=== PATIENT | female | born 1980 | race Caucasian/White ===

== ENCOUNTER 2017-10-22 17:42 | Emergency (ER) ==
[2017-10-22 17:46] VITALS: BP 139/95; TEMP 99.1; BMI 37.2
[2017-10-22] MEDS ORDERED: LIDOCAINE HCL 1% SDV IM STA (18:11)
[2017-10-22] MEDS ORDERED: ROCEPHIN IM STA (18:11)
--- NOTE | 2017-10-22 18:14 | ED.PDOC ---
General ED Provider: Dr. DONALD ORELLANA Chief Complaint: Urinary Problem Stated Complaint: dysuria, dental pain Time Seen by Physician: 18:00 Mode of Arrival: Walk-In Information Source: Patient Exam Limitations: No limitations [facility] Documentation Reviewed and Agree: Yes Reviewed sepsis parameters & appropriate labs ordered?: Yes (seen with nelda at all times ) System Inflammatory Response Syndrome: Not Applicable Sepsis Protocol: For patient's 13 years and over: Temp is 96.8 and below OR 101 and greater Pulse >90 BPM Resp >20/minute Acutely Altered Mental Status Are patient's symptoms suggestive of a new infection, such as: -Pneumonia -Skin, Soft Tissue -Endocarditis -UTI -Bone, Joint Infection -Implantable Device -Acute Abdominal Infection -Wound Infection -Meningitis -Blood Stream Catheter Infection -Unknown System Inflammatory Response Syndrome: Not Applicable EENT Complaint Exam - Dental/Oral Complaint/Exam Mechanism of Injury: No known trauma Onset/Duration: 2 days Symptoms Are: Still present Timing: Constant Initial Severity: Moderate Current Severity: Moderate Character: Reports: Aching, Throbbing Aggravating: Reports: Heat, Cold, Chewing Alleviating: Reports: None. Denies: OTC Meds Associated Signs and Symptoms: Denies: Swelling, Discharge, Fever, Foul odor, Foul taste in mouth Related History: Reports: Similar episode Cardiac Risk Factors: Reports: None Dental/Oral Surgical History: Reports: None Tooth Findings: Present: Gross decay, Gross caries Cervical Lymphadenopathy Present: No Facial Swelling Present: No Bleeding Present: No Oropharynx Findings: Absent: Clots, Active bleeding Septal Hematoma: No Foreign Body Present: No Dysphagia Present: No Drooling Present: No Asymmetrical Tonsillar Swelling Present: No Uvula Midline: No Ligia-tonsillar Fluctuence: No Trismus Present: No Palatal Petechiae Present: No Scarlatinaform Rash Present: No Teeth Picture: 1 - decay Differential Diagnoses: Dental Caries, Fractured Tooth Review of Systems - Review Of Systems Constitutional: Reports: No symptoms Eyes: Reports: No symptoms Ears, Nose, Mouth, Throat: Reports: No symptoms Respiratory: Reports: No symptoms Cardiac: Reports: No symptoms GI: Reports: No symptoms : Reports: No symptoms Musculoskeletal: Reports: No symptoms Skin: Reports: No symptoms Neurological: Reports: No symptoms Endocrine: Reports: No symptoms Hematologic/Lymphatic: Reports: No symptoms All Other Systems: Reviewed and Negative Past Medical History - Past Medical History Previously Healthy: No Endocrine: Reports: None Cardiovascular: Reports: None Respiratory: Reports: None Hematological: Reports: None Gastrointestinal: Reports: None Genitourinary: Reports: Kidney stones Neuro/Psych: Reports: Migraine, Anxiety, Depression, Bipolar Disorder Musculoskeletal: Reports: Back Pain Cancer: Reports: None Last Menstrual Period: first october Other Pertinent Past Medical History: 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 - Surgical History General Surgical History: Reports: Tubal ligation, Cholecystectomy - Family History Family History: Reports: Unknown - Social History Smoking Status: Never smoker Hx Substance Use: No Alcohol Screening: None Physical Exam - Physical Exam Appearance: Well-appearing, No pain distress, Well-nourished Eyes: MABEL, EOMI, Conjunctiva clear ENT: Ears normal, Nose normal, Oropharynx normal Respiratory: Airway patent, Breath sounds clear, Breath sounds equal, Respirations nonlabored Cardiovascular: RRR, Pulses normal, No rub, No murmur GI/: Soft, Nontender, No masses, Bowel sounds normal, No Organomegaly Musculoskeletal: Normal strength, ROM intact, No edema, No calf tenderness Skin: Warm, Dry, Normal color Neurological: Sensation intact, Motor intact, Reflexes intact, Cranial nerves intact, Alert, Oriented Psychiatric: Affect appropriate, Mood appropriate Critical Care Note - Critical Care Note Total Time (mins): 0 Course - Course Orders, Labs, Meds: Orders Category Date Time Status URINALYSIS C & S IF INDICATED Stat LAB 10/22/17 17:50 Received Ceftriaxone Sodium [Rocephin] MEDS 10/22/17 18:11 Stat 1 gm IM ONCE STA Lidocaine HCl/Pf [Lidocaine HCl 1% Sdv] MEDS 10/22/17 18:11 Stat 2.1 ml IM ONCE STA Medications Discontinued Medications Generic Name Dose Route Start Last Admin Trade Name Freq PRN Reason Stop Dose Admin Ceftriaxone Sodium 1 gm 10/22/17 18:11 Rocephin IM 10/22/17 18:12 ONCE STA Lidocaine HCl 2.1 ml 10/22/17 18:11 Lidocaine Hcl 1% Sdv IM 10/22/17 18:12 ONCE STA Vital Signs: Temp Pulse Resp BP Pulse Ox 10/22/17 17:42 99.1 F 111 H 20 139/95 H 97 Departure - Departure Time of Disposition: 18:15 Disposition: HOME SELF-CARE Discharge Problem: Urinary tract infectious disease, Pain, dental Instructions: Toothache (ED), Urinary Tract Infection in Women (ED) Condition: Good Pt referred to PMD for follow-up: Yes IPMP verified?: No Additional Instructions: Please call your Family Physician as soon as possible to schedule a follow-up appointment. Prescriptions: Amoxicillin 500 mg PO Q8HR #21 tablet Allergies/Adverse Reactions: Allergies sulfamethoxazole [From Bactrim] Allergy (Severe, Verified 10/22/17 17:46) Hives trimethoprim [From Bactrim] Allergy (Severe, Verified 10/22/17 17:46) Hives ciprofloxacin [From Cipro] Adverse Reaction (Verified 10/22/17 17:46) ciprofloxacin HCl [From Cipro] Adverse Reaction (Verified 10/22/17 17:46) codeine [Codeine] Adverse Reaction (Verified 10/22/17 17:46) BREAK OUT, THROAT SWELLING tramadol HCl [From Ultram] Adverse Reaction (Verified 10/22/17 17:46) ITCHY Home Medications: Ambulatory Orders Amoxicillin 500 mg PO Q8HR #21 tablet 10/22/17 Disposition Discussed With: Patient
== END 2017-10-22 18:54 | disposition home or self-care (01) ==
LOC: ED 17:42
DX: N39.0 Urinary tract infection, site not specified (principal); K08.89 Other specified disorders of teeth and supporting structures; K02.7 Dental root caries
CPT/HCPCS: 81001; 87086; 96372; 99283

== ENCOUNTER 2018-01-17 15:40 | Outpatient (CLI) ==
[2012-12-08 09:46] VITALS: TEMP 98.4
== END 2018-01-17 15:41 | disposition home or self-care (01) ==
LOC: LAB 15:40
PROVIDERS: ATTEND Emergency Medicine
DX: F41.1 Generalized anxiety disorder (principal); G89.4 Chronic pain syndrome; N39.3 Stress incontinence (female) (male); R35.0 Frequency of micturition
CPT/HCPCS: 36415; 80053; 81001; 85025; 87086; 87186

== ENCOUNTER 2018-01-21 09:58 | Emergency (ER) ==
[2018-01-21 10:05] VITALS: BP 126/84; TEMP 98.5; BMI 37.4
[2018-01-21] MEDS ORDERED: MORPHINE 2 MG/ML SYRINGE IM STA (10:20)
[2018-01-21] MEDS ORDERED: ZOFRAN 4 MG/2 ML IM STA (10:20)
--- NOTE | 2018-01-21 10:43 | ED.PDOC ---
General ED Provider: Dr. DONALD ORELLANA Chief Complaint: Headache Stated Complaint: HEADACHE Time Seen by Physician: 10:00 Mode of Arrival: Walk-In Information Source: Patient Exam Limitations: No limitations [facility] Documentation Reviewed and Agree: Yes Does patient meet sepsis criteria?: No If yes, has appropriate treatment been initiated?: No System Inflammatory Response Syndrome: Not Applicable Sepsis Protocol: For patient's 13 years and over: Temp is 96.8 and below OR 101 and greater Pulse >90 BPM Resp >20/minute Acutely Altered Mental Status Are patient's symptoms suggestive of a new infection, such as: -Pneumonia -Skin, Soft Tissue -Endocarditis -UTI -Bone, Joint Infection -Implantable Device -Acute Abdominal Infection -Wound Infection -Meningitis -Blood Stream Catheter Infection -Unknown Neurological Complaint Exam - Headache Complaint/Exam Onset: Gradual Duration: 1 DAY Symptoms Are: Still present Timing: Constant Episodes Lasting: Hours Worst Headache Ever: No Initial Severity: Moderate Current Severity: Moderate Location: Frontal, Temporal Character: Reports: Throbbing Aggravating: Reports: None Alleviating: Reports: None Associated Signs and Symptoms: Reports: Nausea. Denies: Dizziness, Seizure, Vomiting, Sinus pressure, Fever, Neck pain, Neck stiffness, Decreased LOC, Visual changes Related History: Reports: Similar episode Related Surgical History: Reports: None SAH Risk Factors: Reports: None Meningitis Risk Factors: Reports: None Temporal Arteritis Risk Factors: Reports: None Normal Head CT Within Last 12 Months: Yes Fundoscopic Exam: Present: Normal Findings Papilledema Present: No Temporal Artery Tenderness: Present: None Sinus Tenderness: Present: None TMJ Tenderness: Present: None Glascow Coma Scale (see protocol): 15 Meningeal Signs Positive: No Pain on Passive Flexion-Positive Kernig's: No ROM Limited In: No Limitiations Focal Weakness: Present: None Focal Sensory Loss: Present: None Gait: Normal Nystagmus Present: No Gag Reflex Present: Yes [id number]: Normal Findings Romberg Test Positive: No Differential Diagnoses: Migraine Review of Systems - Review Of Systems Constitutional: Reports: No symptoms Eyes: Reports: No symptoms Ears, Nose, Mouth, Throat: Reports: No symptoms Respiratory: Reports: No symptoms Cardiac: Reports: No symptoms GI: Reports: No symptoms : Reports: No symptoms Musculoskeletal: Reports: No symptoms Skin: Reports: No symptoms Neurological: Reports: Headache Endocrine: Reports: No symptoms Hematologic/Lymphatic: Reports: No symptoms All Other Systems: Reviewed and Negative Past Medical History - Past Medical History Previously Healthy: No Endocrine: Reports: None Cardiovascular: Reports: None Respiratory: Reports: None Hematological: Reports: None Gastrointestinal: Reports: None Genitourinary: Reports: Kidney stones Neuro/Psych: Reports: Migraine, Anxiety, Depression, Bipolar Disorder Musculoskeletal: Reports: Back Pain Cancer: Reports: None Last Menstrual Period: just ending Other Pertinent Past Medical History: 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 - Surgical History General Surgical History: Reports: Tubal ligation, Cholecystectomy - Family History Family History: Reports: Unknown - Social History Smoking Status: Never smoker Hx Substance Use: No Alcohol Screening: None Physical Exam - Physical Exam Appearance: Well-appearing, No pain distress, Well-nourished Eyes: MABEL, EOMI, Conjunctiva clear ENT: Ears normal, Nose normal, Oropharynx normal Respiratory: Airway patent, Breath sounds clear, Breath sounds equal, Respirations nonlabored Cardiovascular: RRR, Pulses normal, No rub, No murmur GI/: Soft, Nontender, No masses, Bowel sounds normal, No Organomegaly Musculoskeletal: Normal strength, ROM intact, No edema, No calf tenderness Skin: Warm, Dry, Normal color Neurological: Sensation intact, Motor intact, Reflexes intact, Cranial nerves intact, Alert, Oriented Psychiatric: Affect appropriate, Mood appropriate Critical Care Note - Critical Care Note Total Time (mins): 0 Course - Course Orders, Labs, Meds: Lab Review 01/21/18 10:45 Urine Test Negative Orders Category Date Time Status URINE Stat LAB 01/21/18 10:45 Completed Morphine Sulfate [Morphine 2 mg/ml Syringe] MEDS 01/21/18 10:20 Discontinued 4 mg IM ONCE STA Ondansetron HCl/Pf [Zofran 4 mg/2 ml] MEDS 01/21/18 10:20 Discontinued 4 mg IM ONCE STA CT HEAD W/O CONTRAST Stat RADS 01/21/18 10:45 Completed Medications Discontinued Medications Generic Name Dose Route Start Last Admin Trade Name Freq PRN Reason Stop Dose Admin Morphine Sulfate 4 mg 01/21/18 10:20 01/21/18 11:37 Morphine 2 Mg/Ml Syringe IM 01/21/18 10:21 4 mg ONCE STA Administration Ondansetron HCl 4 mg 01/21/18 10:20 01/21/18 11:36 Zofran 4 Mg/2 Ml IM 01/21/18 10:21 4 mg ONCE STA Administration Vital Signs: Temp Pulse Resp BP Pulse Ox 01/21/18 09:59 98.5 F 80 16 126/84 96 Departure - Departure Time of Disposition: 12:19 (D/C WITH ADMINSTRATION PRESENT) Disposition: HOME SELF-CARE Discharge Problem: Headache Instructions: Acute Headache (ED) Condition: Good Pt referred to PMD for follow-up: Yes IPMP verified?: No Additional Instructions: Please call your Family Physician as soon as possible to schedule a follow-up appointment. Prescriptions: Hydrocodone/Acetaminophen [Elma 10-325 Tablet] 1 each PO Q8HR #3 tablet Allergies/Adverse Reactions: Allergies sulfamethoxazole [From Bactrim] Allergy (Severe, Verified 01/21/18 10:07) Hives trimethoprim [From Bactrim] Allergy (Severe, Verified 01/21/18 10:07) Hives ciprofloxacin [From Cipro] Adverse Reaction (Verified 01/21/18 10:07) ciprofloxacin HCl [From Cipro] Adverse Reaction (Verified 01/21/18 10:07) codeine [Codeine] Adverse Reaction (Verified 01/21/18 10:07) BREAK OUT, THROAT SWELLING tramadol HCl [From Ultram] Adverse Reaction (Verified 01/21/18 10:07) ITCHY Home Medications: Ambulatory Orders Hydrocodone/Acetaminophen [Elma 10-325 Tablet] 1 each PO Q8HR #3 tablet Disposition Discussed With: Patient
--- NOTE | 2018-01-21 12:11 | CT ---
EXAM: CT BRAIN HISTORY: Head pain TECHNIQUE: CT brain without intravenous contrast. 5-mm axial sections with Reformations. COMPARISON: None FINDINGS: Brain is unremarkable without evidence of hemorrhage or large vessel distribution recent ischemic in farction. There is no suggestion of acute hydrocephalus or subdural fluid collection. No mass or ma ss effect. Cranium is within normal limits. Mastoid processes are aerated. The visualized paranasal sinuses a re clear. IMPRESSION: No acute intracranial process.
== END 2018-01-21 12:32 | disposition home or self-care (01) ==
LOC: ED 09:58
DX: R51 Headache (principal)
CPT/HCPCS: 81025; 96372; 99283

== ENCOUNTER 2018-02-11 11:23 | Emergency (ER) ==
[2018-02-11 11:27] VITALS: BP 124/78; TEMP 97.9; BMI 37.5
--- NOTE | 2018-02-11 11:53 | ED.PDOC ---
General ED Provider: Dr. DONALD ORELLANA Chief Complaint: Sore Throat Stated Complaint: sore throat Time Seen by Physician: 11:30 Mode of Arrival: Walk-In Information Source: Patient Exam Limitations: No limitations [facility] and T[facility] Documentation Reviewed and Agree: Yes Does patient meet sepsis criteria?: No If yes, has appropriate treatment been initiated?: No System Inflammatory Response Syndrome: Not Applicable Sepsis Protocol: For patient's 13 years and over: Temp is 96.8 and below OR 101 and greater Pulse >90 BPM Resp >20/minute Acutely Altered Mental Status Are patient's symptoms suggestive of a new infection, such as: -Pneumonia -Skin, Soft Tissue -Endocarditis -UTI -Bone, Joint Infection -Implantable Device -Acute Abdominal Infection -Wound Infection -Meningitis -Blood Stream Catheter Infection -Unknown EENT Complaint Exam - Throat Complaint/Exam Onset/Duration: 1day Symptoms Are: Still present Timimg: Intermittent Initial Severity: Moderate Current Severity: Moderate Aggravating: Reports: Eating Alleviating: Reports: None Associated Signs and Symptoms: Reports: Nasal congestion. Denies: Fever, Dysphagia, Drooling, Foreign body sensation, Chills, Cough, Wheezing, Hoarseness , Sinus discomfort, Difficulty breathing, Lethargy, Irritability, Decreased activity, Vomiting, Diarrhea, Decreased hearing, Ear drainage Uvula Midline: Yes Ligia-tonsillar Fluctuence: No Scarlatinaform Rash Present: No Lesions: Absent: Lip, Gums, Tongue, Buccal Mucosa, Pharynx Exanthem: Absent: Lip, Gums, Tongue, Buccal Mucosa, Pharynx Vesicles: Absent: Lip, Gums, Tongue, Buccal Mucosa, Pharynx Stridor Present: No Sinus Tenderness Present: No Tonsillar Hypertrophy Present: No Tonsillar Exudate Present: No Ligia-tonsillar Swelling Present: No Adenopathy Present: No Splenomegaly Present: No Differential Diagnoses: Pharyngitis Review of Systems - Review Of Systems Constitutional: Reports: No symptoms Eyes: Reports: No symptoms Ears, Nose, Mouth, Throat: Reports: Throat pain Respiratory: Reports: No symptoms Cardiac: Reports: No symptoms GI: Reports: No symptoms : Reports: No symptoms Musculoskeletal: Reports: No symptoms Skin: Reports: No symptoms Neurological: Reports: No symptoms Endocrine: Reports: No symptoms Hematologic/Lymphatic: Reports: No symptoms All Other Systems: Reviewed and Negative Past Medical History - Past Medical History Previously Healthy: No Endocrine: Reports: None Cardiovascular: Reports: None Respiratory: Reports: None Hematological: Reports: None Gastrointestinal: Reports: None Genitourinary: Reports: Kidney stones Neuro/Psych: Reports: Migraine, Anxiety, Depression, Bipolar Disorder Musculoskeletal: Reports: Back Pain Cancer: Reports: None Last Menstrual Period: january 2018 Other Pertinent Past Medical History: 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 - Surgical History General Surgical History: Reports: Tubal ligation, Cholecystectomy - Family History Family History: Reports: Unknown - Social History Smoking Status: Never smoker Hx Substance Use: No Alcohol Screening: None Physical Exam - Physical Exam Appearance: Well-appearing, No pain distress, Well-nourished Eyes: MABEL, EOMI, Conjunctiva clear ENT: Erythema Respiratory: Airway patent, Breath sounds clear, Breath sounds equal, Respirations nonlabored Cardiovascular: RRR, Pulses normal, No rub, No murmur GI/: Soft, Nontender, No masses, Bowel sounds normal, No Organomegaly Musculoskeletal: Normal strength, ROM intact, No edema, No calf tenderness Skin: Warm, Dry, Normal color Neurological: Sensation intact, Motor intact, Reflexes intact, Cranial nerves intact, Alert, Oriented Psychiatric: Affect appropriate, Mood appropriate Critical Care Note - Critical Care Note Total Time (mins): 0 Course - Course Vital Signs: Temp Pulse Resp BP Pulse Ox 02/11/18 11:24 97.9 F 73 18 124/78 96 Departure - Departure Time of Disposition: 11:53 Disposition: HOME SELF-CARE Discharge Problem: Sore throat symptom Pharyngitis Qualifiers: Pharyngitis/tonsillitis etiology: unspecified etiology Qualified Code(s): J02.9 - Acute pharyngitis, unspecified Instructions: Pharyngitis (ED) Condition: Good Pt referred to PMD for follow-up: Yes IPMP verified?: No Additional Instructions: Please call your Family Physician as soon as possible to schedule a follow-up appointment. Allergies/Adverse Reactions: Allergies sulfamethoxazole [From Bactrim] Allergy (Severe, Verified 02/11/18 11:27) Hives trimethoprim [From Bactrim] Allergy (Severe, Verified 02/11/18 11:27) Hives ciprofloxacin [From Cipro] Adverse Reaction (Verified 02/11/18 11:27) ciprofloxacin HCl [From Cipro] Adverse Reaction (Verified 02/11/18 11:27) codeine [Codeine] Adverse Reaction (Verified 02/11/18 11:27) BREAK OUT, THROAT SWELLING tramadol HCl [From [facility]] Adverse Reaction (Verified 02/11/18 11:27) ITCHY Home Medications: Ambulatory Orders Amoxicillin 500 mg PO Q8HR #21 tablet 02/11/18
== END 2018-02-11 12:05 | disposition home or self-care (01) ==
LOC: ED 11:23
DX: J02.9 Acute pharyngitis, unspecified (principal)
CPT/HCPCS: 99282

== ENCOUNTER 2018-02-14 16:17 | Outpatient (CLI) ==
[2012-12-08 09:46] VITALS: TEMP 98.4
== END 2018-02-14 16:18 | disposition home or self-care (01) ==
LOC: RHC-LAB 16:17
PROVIDERS: ATTEND Emergency Medicine
DX: J04.0 Acute laryngitis (principal); J02.9 Acute pharyngitis, unspecified
CPT/HCPCS: 87651

== ENCOUNTER 2018-02-16 10:27 | Outpatient (CLI) ==
[2012-12-08 09:46] VITALS: TEMP 98.4
== END 2018-02-16 10:28 | disposition home or self-care (01) ==
LOC: LAB 10:27
PROVIDERS: ATTEND Emergency Medicine
DX: J04.0 Acute laryngitis (principal); J02.9 Acute pharyngitis, unspecified; E66.9 Obesity, unspecified
CPT/HCPCS: 36415; 80053; 84443; 85025

== ENCOUNTER 2018-02-18 13:51 | Outpatient (CLI) ==
[2012-12-08 09:46] VITALS: TEMP 98.4
--- NOTE | 2018-02-18 15:11 | DI ---
EXAM: KUB. History: Abdominal pain. Comparison: CT abdomen pelvis 05/02/2016 Findings: Nonspecific but nonobstructive bowel gas pattern. No free intraperitoneal air. No acute osseous abnormalities. There are calcifications seen projecting over the left renal shadow measuring up to 4 mm. Right ureteral stent is seen in place. 2 cm calcification seen in the proximal aspect of the stent. Question 5 mm calcification along the proximal stent. There is a large calcification in the pelvis adjacent to the distal stent measuring 4.4 cm. Impression: 1. Left nephrolithiasis. 2. Right ureteral stent with calcification seen along the proximal stent and large calcification see n along the distal stent within the bladder.
== END 2018-02-18 13:52 | disposition home or self-care (01) ==
LOC: RAD 13:51
PROVIDERS: ATTEND Nurse Practitioner Family
DX: R10.9 Unspecified abdominal pain (principal); Z87.442 Personal history of urinary calculi

== ENCOUNTER 2018-04-28 09:39 | Outpatient (CLI) ==
[2012-12-08 09:46] VITALS: TEMP 98.4
--- NOTE | 2018-04-28 10:03 | DI ---
EXAM: Single view of the abdomen. History: Kidney stones. Comparison: KUB 02/18/2018 Findings: Right ureteral stent again seen in place. Bilateral nephrolithiasis measuring up to 3 mm on the right and 4 mm on the left. Nonobstructive bowel gas pattern. No free air. No acute osseous abnormalities. Cholecystectomy clips. Impression: 1. Bilateral nephrolithiasis. 2. Right ureteral stent
== END 2018-04-28 09:40 | disposition home or self-care (01) ==
LOC: RAD 09:39
PROVIDERS: ATTEND Urology
DX: N20.0 Calculus of kidney (principal)

== ENCOUNTER 2018-07-20 16:13 | Outpatient (CLI) ==
[2012-12-08 09:46] VITALS: TEMP 98.4
== END 2018-07-20 16:14 | disposition home or self-care (01) ==
LOC: RHC-LAB 16:13 → FCC-LAB 16:14
PROVIDERS: ATTEND Nurse Practitioner Family
DX: M25.511 Pain in right shoulder (principal); M25.512 Pain in left shoulder; M54.5 Low back pain; L56.8 Other specified acute skin changes due to ultraviolet radiation; Z82.49 Family history of ischemic heart disease and other diseases of the circulatory system
CPT/HCPCS: 36415; 80053; 85651; 86038; 86430

== ENCOUNTER 2018-08-07 17:14 | Emergency (ER) ==
[2018-08-07 17:18] VITALS: BP 127/85; TEMP 98.4; BMI 40.1
[2018-08-07] MEDS ORDERED: MORPHINE 2 MG/ML SYRINGE IM STA (17:25)
[2018-08-07] MEDS ORDERED: ZOFRAN 4 MG/2 ML IM STA (17:26)
--- NOTE | 2018-08-07 18:35 | ED.PDOC ---
General ED Provider: Dr. RYAN ABARCA-ER Chief Complaint: Back Pain Stated Complaint: my back hurts---i think i have a kidney stone Time Seen by Physician: 17:20 Mode of Arrival: Walk-In Information Source: Patient Exam Limitations: No limitations Primary Care Provider: IAN VEGA Nursing and Triage Documentation Reviewed and Agree: Yes Does patient meet sepsis criteria?: No System Inflammatory Response Syndrome: Not Applicable Sepsis Protocol: For patient's 13 years and over: Temp is 96.8 and below OR 101 and greater Pulse >90 BPM Resp >20/minute Acutely Altered Mental Status Are patient's symptoms suggestive of a new infection, such as: -Pneumonia -Skin, Soft Tissue -Endocarditis -UTI -Bone, Joint Infection -Implantable Device -Acute Abdominal Infection -Wound Infection -Meningitis -Blood Stream Catheter Infection -Unknown Musculoskeletal Complaint Exam - Back Pain Complaint/Exam Mechanism of Injury: Reports: No known trauma Onset/Duration: 3 days Symptoms Are: Still present Timing: Constant Initial Severity: Mild Current Severity: Moderate Location: Reports: Discrete Character: Reports: Dull, Aching Associated Signs and Symptoms: Reports: Flank pain Related Surgical History: Reports: None Focal Tenderness: Yes Paraspinal Muscle Tenderness: Yes Paraspinal Muscle Spasm: No Scoliosis: No Lordosis: No Kyphosis: No SLR Test: Right Negative, Left Negative Hip Motion Testing Pain: Right Negative, Left Negative Focal Weakness: Present: None Focal Sensory Loss: Present: None Gait: Present: Normal Differential Diagnoses: Renal Colic Review of Systems - Review Of Systems Constitutional: Reports: No symptoms Eyes: Reports: No symptoms Ears, Nose, Mouth, Throat: Reports: No symptoms Respiratory: Reports: No symptoms Cardiac: Reports: No symptoms GI: Reports: No symptoms : Reports: Flank pain Musculoskeletal: Reports: Back pain Skin: Reports: No symptoms Neurological: Reports: No symptoms Endocrine: Reports: No symptoms Hematologic/Lymphatic: Reports: No symptoms All Other Systems: Reviewed and Negative Past Medical History - Past Medical History Previously Healthy: No Endocrine: Reports: None Cardiovascular: Reports: None Respiratory: Reports: None Hematological: Reports: None Gastrointestinal: Reports: None Genitourinary: Reports: Kidney stones Neuro/Psych: Reports: Migraine, Anxiety, Depression, Bipolar Disorder Musculoskeletal: Reports: Back Pain Cancer: Reports: None Last Menstrual Period: now Other Pertinent Past Medical History: 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 - Surgical History General Surgical History: Reports: Tubal ligation, Cholecystectomy - Family History Family History: Reports: Unknown - Social History Smoking Status: Never smoker Hx Substance Use: No Alcohol Screening: None Lives: With family Physical Exam - Physical Exam Appearance: Well-appearing, No pain distress, Well-nourished Pain Distress: Mild Eyes: MABEL, EOMI, Conjunctiva clear ENT: Ears normal, Nose normal, Oropharynx normal Neck: Supple Respiratory: Airway patent, Breath sounds clear, Breath sounds equal, Respirations nonlabored Cardiovascular: RRR, Pulses normal, No rub, No murmur GI/: Soft, Nontender, No masses, Bowel sounds normal, No Organomegaly Musculoskeletal: Normal strength, ROM intact, No edema, No calf tenderness Skin: Warm Neurological: Sensation intact Psychiatric: Affect appropriate, Mood appropriate Interpretation - Radiology Interpretation Radiology Interpretation By: Radiologist Radiology Results: Positive Exam Interpreted: CT Scan Physician Notification - Case Discussed Physician Notified: dr tracey and dr [place] Time of Notification: 19:23 Critical Care Note - Critical Care Note Total Time (mins): 0 Course - Course Hematology/Chemistry: 08/07/18 17:34 08/07/18 17:34 Orders, Labs, Meds: Lab Review 08/07/18 08/07/18 08/07/18 17:30 17:34 17:34 WBC 13.21 H RBC 4.77 Hgb 13.3 Hct 41.8 MCV 87.6 MCH 27.9 MCHC 31.8 RDW Coeff of Juan J 13.6 Plt Count 463 H Immature Gran % (Auto) 0.2 Neut % (Auto) 48.7 Lymph % (Auto) 42.0 Wise % (Auto) 7.9 Eos % (Auto) 0.7 Baso % (Auto) 0.5 Immature Gran # (Auto) 0.0 Neut # (Auto) 6.4 Lymph # (Auto) 5.6 H [place] # (Auto) 1.1 Eos # (Auto) 0.1 Baso # (Auto) 0.1 Sodium 143.0 Potassium 3.96 Chloride 102.8 Carbon Dioxide 29.7 Anion Gap 14.46 BUN 13.0 Creatinine 0.94 Estimated GFR (MDRD) 66.00 BUN/Creatinine Ratio 13.82 Glucose 91.8 Calcium 9.03 Total Bilirubin 0.24 AST 21.6 ALT 18.3 Alkaline Phosphatase 86.2 Total Protein 8.22 H Albumin 4.34 Globulin 3.88 Albumin/Globulin Ratio 1.11 Amylase 74.2 Lipase 105.8 Serum , Qual Urine Color Yellow Urine Clarity Cloudy Urine pH 5.5 Ur Specific [place] 1.020 Urine Protein Trace Urine Glucose (UA) Negative Urine Ketones Negative Urine Blood 3+ Urine Nitrite Negative Urine Bilirubin Negative Urine Urobilinogen 0.2 Ur Leukocyte Esterase 2+ Urine Microscopic RBC 10-20 Urine Microscopic WBC Tntc Ur Squamous Epith Cells 10-20 Urine Bacteria 3+ Urine Trichomonas Few 08/07/18 17:34 WBC RBC Hgb Hct MCV MCH MCHC RDW Coeff of Juan J Plt Count Immature Gran % (Auto) Neut % (Auto) Lymph % (Auto) [place] % (Auto) Eos % (Auto) Baso % (Auto) Immature Gran # (Auto) Neut # (Auto) Lymph # (Auto) Wise # (Auto) Eos # (Auto) Baso # (Auto) Sodium Potassium Chloride Carbon Dioxide Anion Gap BUN Creatinine Estimated GFR (MDRD) BUN/Creatinine Ratio Glucose Calcium Total Bilirubin AST ALT Alkaline Phosphatase Total Protein Albumin Globulin Albumin/Globulin Ratio Amylase Lipase Serum , Qual Negative Urine Color Urine Clarity Urine pH Ur Specific [place] Urine Protein Urine Glucose (UA) Urine Ketones Urine Blood Urine Nitrite Urine Bilirubin Urine Urobilinogen Ur Leukocyte Esterase Urine Microscopic RBC Urine Microscopic WBC Ur Squamous Epith Cells Urine Bacteria Urine Trichomonas Orders Category Date Time Status ED IV/MEDIPORT/POWERPORT .ONCE EMERGENCY 08/07/18 19:20 Active AMYLASE Stat LAB 08/07/18 17:34 Completed CBC W/ AUTO DIFF Stat LAB 08/07/18 17:34 Completed COMPREHENSIVE METABOLIC PANEL Stat LAB 08/07/18 17:34 Completed LIPASE Stat LAB 08/07/18 17:34 Completed SERUM Stat LAB 08/07/18 17:34 Completed URINALYSIS C & S IF INDICATED Stat LAB 08/07/18 17:30 Completed URINE CULTURE Stat LAB 08/07/18 17:30 Received 0.9 % Sodium Chloride [Saline Flush] MEDS 08/07/18 19:20 Ordered 1 syr IVF PRN PRN Morphine Sulfate [Morphine 2 mg/ml Syringe] MEDS 08/07/18 17:25 Discontinued 4 mg IM ONCE STA Ondansetron HCl/Pf [Zofran 4 mg/2 ml] MEDS 08/07/18 17:26 Discontinued 4 mg IM ONCE STA Sodium Chloride 0.9% [Sodium Chloride] 1,000 ml MEDS 08/07/18 19:20 Active IV 100 mls/hr CT ABDOMEN/PELVIS WO CONTRAST Stat RADS 08/07/18 17:24 Completed Medications Generic Name Dose Route Start Last Admin Trade Name Freq PRN Reason Stop Dose Admin Sodium Chloride 1,000 mls @ 100 mls/hr 08/07/18 19:20 Sodium Chloride IV 08/08/18 05:19 .Q10H STA Sodium Chloride 1 syr 08/07/18 19:20 Saline Flush IVF PRN PRN To flush IV Discontinued Medications Generic Name Dose Route Start Last Admin Trade Name Freq PRN Reason Stop Dose Admin Morphine Sulfate 4 mg 08/07/18 17:25 08/07/18 17:41 Morphine 2 Mg/Ml Syringe IM 08/07/18 17:26 4 mg ONCE STA Administration Ondansetron HCl 4 mg 08/07/18 17:26 08/07/18 17:42 Zofran 4 Mg/2 Ml IM 08/07/18 17:27 4 mg ONCE STA Administration Vital Signs: Temp Pulse Resp BP Pulse Ox 08/07/18 17:15 98.4 F 82 20 127/85 97 Departure - Departure Time of Disposition: 19:24 Disposition: TSF SHORT-TRM HOSP Discharge Problem: Ureteral stone with hydronephrosis Instructions: Hydronephrosis (ED), Ureteral Stones (ED) Condition: Good Pt referred to PMD for follow-up: Yes IPMP verified?: No Allergies/Adverse Reactions: Allergies sulfamethoxazole [From Bactrim] Allergy (Severe, Verified 08/07/18 17:18) Hives trimethoprim [From Bactrim] Allergy (Severe, Verified 08/07/18 17:18) Hives ciprofloxacin [From Cipro] Adverse Reaction (Verified 08/07/18 17:18) ciprofloxacin HCl [From Cipro] Adverse Reaction (Verified 08/07/18 17:18) codeine [Codeine] Adverse Reaction (Verified 08/07/18 17:18) BREAK OUT, THROAT SWELLING ibuprofen Adverse Reaction (Verified 08/07/18 17:18) tramadol HCl [From Ultram] Adverse Reaction (Verified 08/07/18 17:18) ITCHY Home Medications: Ambulatory Orders Hydrocodone/Acetaminophen [[place] 7.5-325 Tablet] 1 each PO TID 07/20/18 Imitrex 25 mg PO PRN PRN 07/20/18 Oxybutynin Chloride 5 mg PO DAILY 07/20/18 Transfer Form Completed: Yes Disposition Discussed With: Patient, Family
--- NOTE | 2018-08-07 18:55 | CT ---
Exam: CT of the abdomen and pelvis without contrast History: Right flank pain Technique: [address] of the abdomen and pelvis without intravascular contrast FINDINGS: The lung bases are clear. No significant liver abnormality. The adrenals, pancreas and s pleen are unremarkable. The stomach and hiatus are unremarkable.Prior cholecystectomy. Mild right h ydronephrosis with 4.5 x 7.1 mm proximal ureteral calculus. There is also a 5.8 x 8.9 mm distal uret er calculus. There is a 4.5 mm calculus of the left kidney without hydronephrosis or inflammation. The appendix is normal. Bowel loops demonstrate normal caliber. No inflamatory change seen in the m esentery or retroperitoneum. Vascular structures appear normal by noncontrast CT. Right distal ureteral calculus. Normal pelvic genitourinary structures otherwise. Normal pelvic bow el loops. No acute findings of the skeleton. Impression: 1. Mild right hydronephrosis secondary to proximal and distal ureteral calculus as described. 2. Nonobstructing nephrolithiasis of the left kidney
[2018-08-07] MEDS ORDERED: SODIUM CHLORIDE 1,000 ML IV STA (19:20)
[2018-08-07] MEDS ORDERED: ZOSYN 3.375 GM 3.375 GM in SODIUM CHLORIDE 50 ML IV STA (19:25)
[2018-08-07] MEDS ORDERED: DILAUDID 1 MG/ML SYRINGE IVP STA (19:38)
[2018-08-07] MEDS ORDERED: DILAUDID 1 MG/ML SYRINGE ONE (19:40)
== END 2018-08-07 21:15 | disposition short-term general hospital (02) ==
LOC: ED 17:14
DX: N13.2 Hydronephrosis with renal and ureteral calculous obstruction (principal)
CPT/HCPCS: 36415; 80053; 81001; 82150; 83690; 84703; 85025; 87086; 96361; 96365; 96375; 99285

== ENCOUNTER 2018-08-07 21:18 | Outpatient (CLI) ==
[2012-12-08 09:46] VITALS: TEMP 98.4
[2018-08-07 17:18] VITALS: BMI 40.1
== END 2018-08-07 22:04 | disposition short-term general hospital (02) ==
LOC: AMBL 21:18
PROVIDERS: ATTEND Internal Medicine Geriatric Medicine
DX: N20.0 Calculus of kidney (principal); R10.9 Unspecified abdominal pain

== ENCOUNTER 2018-08-16 13:38 | Outpatient (CLI) ==
[2012-12-08 09:46] VITALS: TEMP 98.4
--- NOTE | 2018-08-16 14:32 | DI ---
EXAM: Five views of the lumbar spine. History: Right-sided back pain. Comparison: CT abdomen pelvis 08/07/2018 Findings: Cholecystectomy clips. Right ureteral stent seen in place. A few calcifications seen pro jecting over the left kidney the largest measuring 3 mm. No acute fracture or subluxation of the lumbar spine. Mild disc space narrowing at L4-L5 and L5-S1 w ith tiny osteophytes. Impression: 1. No acute osseous abnormality of the lumbar spine. 2. Mild degenerative disc disease at L4-L5 and L5-S1. 3. Right ureteral stent. 4. Left nephrolithiasis
== END 2018-08-16 13:39 | disposition home or self-care (01) ==
LOC: RAD 13:38
PROVIDERS: ATTEND Family Medicine
DX: M54.31 Sciatica, right side (principal); Z68.41 Body mass index [BMI] 40.0-44.9, adult

== ENCOUNTER 2018-10-11 15:07 | Outpatient (CLI) ==
[2012-12-08 09:46] VITALS: TEMP 98.4
== END 2018-10-11 15:08 | disposition home or self-care (01) ==
LOC: CAR 15:07
PROVIDERS: ATTEND Psychiatry & Neurology Sleep Medicine
DX: G47.33 Obstructive sleep apnea (adult) (pediatric) (principal)
CPT/HCPCS: 95810

== ENCOUNTER 2018-11-07 19:30 | Emergency (ER) ==
[2018-11-07 19:36] VITALS: BP 133/84; TEMP 98; BMI 41.3
--- NOTE | 2018-11-07 19:42 | ED.PDOC ---
General ED Provider: Dr. RYAN ABARCA-ER Chief Complaint: Sore Throat Stated Complaint: my throat is sore Time Seen by Physician: 19:39 Mode of Arrival: Walk-In Information Source: Patient Exam Limitations: No limitations Primary Care Provider: FIDENCIO ROWLYE Nursing and Triage Documentation Reviewed and Agree: Yes Does patient meet sepsis criteria?: No System Inflammatory Response Syndrome: Not Applicable Sepsis Protocol: For patient's 13 years and over: Temp is 96.8 and below OR 101 and greater Pulse >90 BPM Resp >20/minute Acutely Altered Mental Status Are patient's symptoms suggestive of a new infection, such as: -Pneumonia -Skin, Soft Tissue -Endocarditis -UTI -Bone, Joint Infection -Implantable Device -Acute Abdominal Infection -Wound Infection -Meningitis -Blood Stream Catheter Infection -Unknown EENT Complaint Exam - Throat Complaint/Exam Onset/Duration: 24 hrs Symptoms Are: Still present Timimg: Constant Initial Severity: Mild Current Severity: Mild Aggravating: Reports: Eating Alleviating: Reports: Antipyretics Associated Signs and Symptoms: Reports: Nasal congestion. Denies: Fever, Dysphagia Related History: Reports: Similar Episode Uvula Midline: Yes Ligia-tonsillar Fluctuence: No Scarlatinaform Rash Present: No Exanthem: Present: Pharynx Stridor Present: No Sinus Tenderness Present: No Tonsillar Hypertrophy Present: No Tonsillar Exudate Present: No Ligia-tonsillar Swelling Present: No Adenopathy Present: No Splenomegaly Present: No Differential Diagnoses: Pharyngitis Review of Systems - Review Of Systems Constitutional: Reports: No symptoms Eyes: Reports: No symptoms Ears, Nose, Mouth, Throat: Reports: Throat pain, Throat swelling Respiratory: Reports: No symptoms Cardiac: Reports: No symptoms GI: Reports: No symptoms : Reports: No symptoms Musculoskeletal: Reports: No symptoms Skin: Reports: No symptoms Neurological: Reports: No symptoms Endocrine: Reports: No symptoms Hematologic/Lymphatic: Reports: No symptoms All Other Systems: Reviewed and Negative Past Medical History - Past Medical History Previously Healthy: No Endocrine: Reports: None Cardiovascular: Reports: None Respiratory: Reports: None Hematological: Reports: None Gastrointestinal: Reports: None Genitourinary: Reports: Kidney stones Neuro/Psych: Reports: Migraine, Anxiety, Depression, Bipolar Disorder Musculoskeletal: Reports: Back Pain Cancer: Reports: None Last Menstrual Period: 1 week Other Pertinent Past Medical History: 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 - Surgical History General Surgical History: Reports: Tubal ligation, Cholecystectomy - Family History Family History: Reports: Unknown - Social History Smoking Status: Never smoker Hx Substance Use: No Alcohol Screening: None Physical Exam - Physical Exam Appearance: Well-appearing, No pain distress, Well-nourished Eyes: MABEL, EOMI, Conjunctiva clear ENT: Rhinorrhea, Erythema Neck: Supple Respiratory: Airway patent, Breath sounds clear, Breath sounds equal, Respirations nonlabored Cardiovascular: RRR, Pulses normal, No rub, No murmur GI/: Soft, Nontender, No masses, Bowel sounds normal, No Organomegaly Musculoskeletal: Normal strength, ROM intact, No edema, No calf tenderness Skin: Warm, Dry, Normal color Neurological: Sensation intact Psychiatric: Affect appropriate, Mood appropriate Critical Care Note - Critical Care Note Total Time (mins): 0 Course - Course Orders, Labs, Meds: Orders Category Date Time Status RAPID STREP SCREEN [MOLECULAR GROUP A STREP] Stat LAB 11/07/18 19:36 Ordered Vital Signs: Temp Pulse Resp BP Pulse Ox 11/07/18 19:30 98.0 F 78 18 133/84 95 Departure - Departure Time of Disposition: 19:40 Disposition: HOME SELF-CARE Discharge Problem: Sore throat symptom Instructions: Pharyngitis (ED) Condition: Good Pt referred to PMD for follow-up: No IPMP verified?: No Additional Instructions: amoxil 250mg tid x 7 days---salt water gargles---recheck in 72hrs if not bettter Allergies/Adverse Reactions: Allergies sulfamethoxazole [From Bactrim] Allergy (Severe, Verified 11/07/18 19:33) Hives trimethoprim [From Bactrim] Allergy (Severe, Verified 11/07/18 19:33) Hives ciprofloxacin [From Cipro] Adverse Reaction (Verified 11/07/18 19:33) ciprofloxacin HCl [From Cipro] Adverse Reaction (Verified 11/07/18 19:33) codeine [Codeine] Adverse Reaction (Verified 11/07/18 19:33) BREAK OUT, THROAT SWELLING ibuprofen Adverse Reaction (Verified 11/07/18 19:33) morphine Adverse Reaction (Verified 11/07/18 19:33) tramadol HCl [From Ultram] Adverse Reaction (Verified 11/07/18 19:33) ITCHY Home Medications: Ambulatory Orders Hydrocodone/Acetaminophen [[place] 7.5-325 Tablet] 1 each PO TID 07/20/18 Imitrex 25 mg PO PRN PRN 07/20/18 Oxybutynin Chloride 5 mg PO DAILY 07/20/18 Atomoxetine HCl [Strattera] 40 mg PO DAILY 11/07/18 Duloxetine HCl [Cymbalta] 20 mg PO BID 11/07/18 Propranolol HCl [Propranolol HCl ER] 60 mg PO DAILY 11/07/18 Quetiapine Fumarate [Seroquel] 50 mg PO BID 11/07/18 Disposition Discussed With: Patient, Family
== END 2018-11-07 19:49 | disposition home or self-care (01) ==
LOC: ED 19:30
DX: J02.9 Acute pharyngitis, unspecified (principal)
CPT/HCPCS: 87651; 99283

== ENCOUNTER 2018-12-04 21:04 | Emergency (ER) ==
[2012-12-08 09:46] VITALS: BP 128/87; TEMP 98.4
[2018-12-04 21:11] VITALS: BP 133/88; TEMP 98.8; BMI 41.5
--- NOTE | 2018-12-04 21:34 | ED.PDOC ---
General ED Provider: Dr. RYAN ABARCA-ER Chief Complaint: Urinary Problem Stated Complaint: uziel been having blood in my urine off and on for 2 weeks Time Seen by Physician: 21:10 Mode of Arrival: Walk-In Information Source: Patient, Family Exam Limitations: No limitations Primary Care Provider: FIDENCIO ROWLEY Nursing and Triage Documentation Reviewed and Agree: Yes Does patient meet sepsis criteria?: No System Inflammatory Response Syndrome: Not Applicable Sepsis Protocol: For patient's 13 years and over: Temp is 96.8 and below OR 101 and greater Pulse >90 BPM Resp >20/minute Acutely Altered Mental Status Are patient's symptoms suggestive of a new infection, such as: -Pneumonia -Skin, Soft Tissue -Endocarditis -UTI -Bone, Joint Infection -Implantable Device -Acute Abdominal Infection -Wound Infection -Meningitis -Blood Stream Catheter Infection -Unknown Complaint Exam - UTI Female Complaint/Exam Patient Complains of: Reports: Painful urination, Blood in urine Symptoms Are: Still present Timing: Intermittent Initial Severity: Mild Location of Pain: Reports: Suprapubic Associated Signs and Symptoms: Reports: Flank pain. Denies: Fever, Chills CVA Tenderness: No Suprapubic Tenderness: No Differential Diagnoses: Cystitis, Pyelonephritis, Ureteral Calculus Review of Systems - Review Of Systems Constitutional: Reports: No symptoms Eyes: Reports: No symptoms Ears, Nose, Mouth, Throat: Reports: No symptoms Respiratory: Reports: No symptoms Cardiac: Reports: No symptoms GI: Reports: No symptoms : Reports: Flank pain, Hematuria Musculoskeletal: Reports: No symptoms Skin: Reports: No symptoms Neurological: Reports: No symptoms Endocrine: Reports: No symptoms Hematologic/Lymphatic: Reports: No symptoms All Other Systems: Reviewed and Negative Past Medical History - Past Medical History Previously Healthy: No Endocrine: Reports: None Cardiovascular: Reports: None Respiratory: Reports: None Hematological: Reports: None Gastrointestinal: Reports: None Genitourinary: Reports: Kidney stones Neuro/Psych: Reports: Migraine, Anxiety, Depression, Bipolar Disorder Musculoskeletal: Reports: Back Pain Cancer: Reports: None Last Menstrual Period: 4 DAYS AGO Other Pertinent Past Medical History: 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 - Surgical History General Surgical History: Reports: Tubal ligation, Cholecystectomy - Family History Family History: Reports: Unknown - Social History Smoking Status: Never smoker Hx Substance Use: No Alcohol Screening: None - Immunizations Tetanus Shot up to Date: Yes Physical Exam - Physical Exam Appearance: Well-appearing, No pain distress, Well-nourished Eyes: MABEL, EOMI, Conjunctiva clear ENT: Ears normal, Nose normal, Oropharynx normal Neck: Supple Respiratory: Airway patent, Breath sounds clear, Breath sounds equal, Respirations nonlabored Cardiovascular: RRR, Pulses normal, No rub, No murmur GI/: Soft, Nontender, No masses, Bowel sounds normal, No Organomegaly Musculoskeletal: Normal strength, ROM intact, No edema, No calf tenderness Skin: Warm, Dry, Normal color Neurological: Sensation intact, Motor intact, Reflexes intact, Cranial nerves intact, Alert, Oriented Psychiatric: Affect appropriate, Mood appropriate Interpretation - Radiology Interpretation Radiology Interpretation By: Radiologist Radiology Results: Negative Exam Interpreted: CT Scan Critical Care Note - Critical Care Note Total Time (mins): 0 Course - Course Hematology/Chemistry: 12/04/18 21:20 12/04/18 21:20 Orders, Labs, Meds: Lab Review 12/04/18 12/04/18 12/04/18 21:20 21:20 21:20 WBC 11.34 H RBC 4.81 Hgb 13.8 Hct 43.2 MCV 89.8 MCH 28.7 MCHC 31.9 RDW Coeff of Juan J 13.6 Plt Count 438 Immature Gran % (Auto) 0.4 Neut % (Auto) 40.5 Lymph % (Auto) 49.0 [place] % (Auto) 8.4 Eos % (Auto) 1.1 Baso % (Auto) 0.6 Immature Gran # (Auto) 0.0 Neut # (Auto) 4.6 Lymph # (Auto) 5.6 H [place] # (Auto) 1.0 Eos # (Auto) 0.1 Baso # (Auto) 0.1 Sodium 142.8 Potassium 3.67 Chloride 108.0 H Carbon Dioxide 24.5 Anion Gap 13.97 BUN 14.4 Creatinine 1.18 Estimated GFR (MDRD) 51.00 BUN/Creatinine Ratio 12.20 Glucose 95.6 Calcium 9.22 Total Bilirubin 0.26 AST 33.1 ALT 25.7 Alkaline Phosphatase 91.4 Total Protein 8.19 Albumin 4.48 Globulin 3.71 Albumin/Globulin Ratio 1.20 Urine Color Yellow Urine Clarity Cloudy Urine pH 6.0 Ur Specific [place] >=1.030 Urine Protein 2+ Urine Glucose (UA) Negative Urine Ketones Negative Urine Blood 3+ Urine Nitrite Positive Urine Bilirubin Negative Urine Urobilinogen 0.2 Ur Leukocyte Esterase 2+ Urine Microscopic RBC 5-10 Urine Microscopic WBC 30-50 Ur Squamous Epith Cells Not present Urine Bacteria 3+ Orders Category Date Time Status CBC W/ AUTO DIFF Stat LAB 12/04/18 21:20 Completed COMPREHENSIVE METABOLIC PANEL Stat LAB 12/04/18 21:20 Completed URINALYSIS C & S IF INDICATED Stat LAB 12/04/18 21:20 Completed URINE CULTURE Stat LAB 12/04/18 21:[address] ABD/PEL WO RENAL STONE PROT Stat RADS 12/04/18 21:18 Completed Vital Signs: Temp Pulse Resp BP Pulse Ox 12/04/18 21:05 98.8 F 87 18 133/88 96 Departure - Departure Time of Disposition: 21:55 Disposition: HOME SELF-CARE Discharge Problem: Urinary tract infectious disease Instructions: Urinary Tract Infection in Women (ED) Condition: Good Pt referred to PMD for follow-up: Yes IPMP verified?: No Additional Instructions: f/u with pcp Prescriptions: Amoxicillin/Potassium Clav [Augmentin 875-125 mg Tab] 1 tab PO Q12HR #20 tablet Allergies/Adverse Reactions: Allergies sulfamethoxazole [From Bactrim] Allergy (Severe, Verified 12/04/18 21:11) Hives trimethoprim [From Bactrim] Allergy (Severe, Verified 12/04/18 21:11) Hives ciprofloxacin [From Cipro] Adverse Reaction (Verified 12/04/18 21:11) ciprofloxacin HCl [From Cipro] Adverse Reaction (Verified 12/04/18 21:11) codeine [Codeine] Adverse Reaction (Verified 12/04/18 21:11) BREAK OUT, THROAT SWELLING ibuprofen Adverse Reaction (Verified 12/04/18 21:11) morphine Adverse Reaction (Verified 12/04/18 21:11) tramadol HCl [From Ultram] Adverse Reaction (Verified 12/04/18 21:11) ITCHY Home Medications: Ambulatory Orders Hydrocodone/Acetaminophen [[place] 7.5-325 Tablet] 1 each PO TID 07/20/18 Oxybutynin Chloride 5 mg PO BID 07/20/18 Atomoxetine HCl [Strattera] 40 mg PO DAILY 11/07/18 Propranolol HCl [Propranolol HCl ER] 60 mg PO DAILY 11/07/18 Quetiapine Fumarate 50 mg PO BID 11/25/18 Sertraline HCl 50 mg PO DAILY 11/25/18 Topiramate 25 mg PO DAILY 11/25/18 Amoxicillin/Potassium Clav [Augmentin 875-125 mg Tab] 1 tab PO Q12HR #20 tablet 12/04/18 Disposition Discussed With: Patient, Family
--- NOTE | 2018-12-04 21:41 | CT ---
Exam: CT of the abdomen and pelvis without contrast History: Hematuria, flank pain Technique: [address] of the abdomen and pelvis without intravascular contrast FINDINGS: The lung bases are clear. No significant liver abnormality. The adrenals, pancreas and s pleen are unremarkable. The stomach and hiatus are unremarkable.Prior cholecystectomy. Normal right kidney and collecting system. There is a 5 mm nonobstructing calculus of the left kidney. The kidn eys and collecting system are unremarkable otherwise. The appendix is normal. Bowel loops demonstra te normal caliber. No inflamatory change seen in the mesentery or retroperitoneum. Vascular structu res appear normal by noncontrast CT. Nondistended urinary bladder. Questionable bladder wall thickening with perivesicular stranding. No rmal pelvic bowel loops. No acute findings of the skeleton. Impression: 1. No bowel or urinary obstruction is seen 2. Possible urinary bladder wall thickening with perivesicular stranding. The findings are confound ed by non distension of the urinary bladder. Correlate for possible cystitis. 3. Single nonobstructing calculus of the left kidney
== END 2018-12-04 22:00 | disposition home or self-care (01) ==
LOC: ED 21:04
DX: N39.0 Urinary tract infection, site not specified (principal); Z87.442 Personal history of urinary calculi
CPT/HCPCS: 36415; 74176; 80053; 81001; 85025; 87086; 87186; 99283

== ENCOUNTER 2018-12-07 18:31 | Observation (INO) ==
[2018-12-07] MEDS ORDERED: ZOFRAN 4 MG/2 ML IVP STA (18:42)
[2018-12-07] MEDS ORDERED: SODIUM CHLORIDE 1,000 ML IV STA (18:42)
--- NOTE | 2018-12-07 19:16 | CT ---
EXAM: CT abdomen pelvis without contrast HISTORY: Vomiting, nausea and abdominal pain COMPARISON: CT abdomen pelvis 08/07/2018 multiple priors TECHNIQUE: Serial axial images of the abdomen pelvis were performed from the lung bases through the inferior pelvis without contrast. These were viewed in multiple planes. FINDINGS: The lung bases are clear. Evaluation is limited due to lack of contrast. The liver is unremarkable. The gallbladder is been r esected. The adrenal glands are unremarkable. The right kidney demonstrates minimal stranding surro unding the right kidney and the proximal right ureter. There is no hydronephrosis or visualized ston e. The left kidney demonstrates a 0.4 cm stone. The spleen is unchanged. Pancreas is unremarkable. Stomach is mildly distended. Small bowel in the abdomen pelvis is unremarkable. The appendix is normal. The colon of is unremark able. The uterus is unremarkable. Urinary bladder is mildly distended. There is no free air, free fluid or lymphadenopathy. The osseous structures are unremarkable. IMPRESSION: 1. No acute intra-abdominal or pelvic process. 2. Prior cholecystectomy. 3. Mild asymmetric stranding in the proximal right ureter and surrounding the right kidney with no v isualized obstruction. This may represent recently passed stone versus mild inflammation.
[2018-12-07] MEDS ORDERED: ROCEPHIN 1 GM in SODIUM CHLORIDE 50 ML IV STA (20:13)
[2018-12-07] MEDS ORDERED: ROCEPHIN ONE (20:16)
--- NOTE | 2018-12-07 20:35 | ED.PDOC ---
General ED Provider: Dr. RYAN ABARCA-ER Chief Complaint: Nausea/Vomiting Stated Complaint: i was seen for uti--iim still vomiting Time Seen by Physician: 18:50 Mode of Arrival: Walk-In Information Source: Patient, Family Exam Limitations: No limitations Primary Care Provider: FIDENCIO ROWLEY Nursing and Triage Documentation Reviewed and Agree: Yes Does patient meet sepsis criteria?: No System Inflammatory Response Syndrome: Not Applicable Sepsis Protocol: For patient's 13 years and over: Temp is 96.8 and below OR 101 and greater Pulse >90 BPM Resp >20/minute Acutely Altered Mental Status Are patient's symptoms suggestive of a new infection, such as: -Pneumonia -Skin, Soft Tissue -Endocarditis -UTI -Bone, Joint Infection -Implantable Device -Acute Abdominal Infection -Wound Infection -Meningitis -Blood Stream Catheter Infection -Unknown Complaint Exam - UTI Female Complaint/Exam Patient Complains of: Reports: Painful urination, Blood in urine Onset/Duration: several days Symptoms Are: Still present Initial Severity: Mild Current Severity: Mild Associated Signs and Symptoms: Reports: Chills. Denies: Fever Patient Rh Status: Unknown CVA Tenderness: Yes Suprapubic Tenderness: No Differential Diagnoses: Pyelonephritis Review of Systems - Review Of Systems Constitutional: Reports: Chills, Fever Eyes: Reports: No symptoms Ears, Nose, Mouth, Throat: Reports: No symptoms Respiratory: Reports: No symptoms Cardiac: Reports: No symptoms GI: Reports: Nausea, Vomiting : Reports: No symptoms Musculoskeletal: Reports: No symptoms Skin: Reports: No symptoms Neurological: Reports: No symptoms Endocrine: Reports: No symptoms Hematologic/Lymphatic: Reports: No symptoms All Other Systems: Reviewed and Negative Past Medical History - Past Medical History Previously Healthy: No Endocrine: Reports: None Cardiovascular: Reports: None Respiratory: Reports: None Hematological: Reports: None Gastrointestinal: Reports: None Genitourinary: Reports: Kidney stones Neuro/Psych: Reports: Migraine, Anxiety, Depression, Bipolar Disorder Musculoskeletal: Reports: Back Pain Cancer: Reports: None Last Menstrual Period: this week Other Pertinent Past Medical History: 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 - Surgical History General Surgical History: Reports: Tubal ligation, Cholecystectomy - Family History Family History: Reports: Unknown - Social History Smoking Status: Never smoker Hx Substance Use: No Alcohol Screening: None Physical Exam - Physical Exam Appearance: Well-appearing, No pain distress, Well-nourished Eyes: MABEL, EOMI, Conjunctiva clear ENT: Ears normal, Nose normal, Oropharynx normal Neck: Supple Respiratory: Airway patent, Breath sounds clear, Breath sounds equal, Respirations nonlabored Cardiovascular: RRR, Pulses normal, No rub, No murmur GI/: Soft, Nontender, No masses, Bowel sounds normal, No Organomegaly Musculoskeletal: Normal strength, ROM intact, No edema, No calf tenderness Skin: Warm, Dry, Normal color Neurological: Sensation intact, Motor intact, Reflexes intact, Cranial nerves intact, Alert, Oriented Psychiatric: Affect appropriate, Mood appropriate Interpretation - Radiology Interpretation Radiology Interpretation By: Radiologist Radiology Results: Positive Exam Interpreted: CT Scan - EKG Interpretation Time of EKG #1: 20:35 Rate: Normal Rhythm: Sinus Ectopy: None [place]: NL ST Segment: Normal Interpretation: nsr Critical Care Note - Critical Care Note Total Time (mins): 0 Course - Course Hematology/Chemistry: 12/07/18 19:00 12/07/18 19:00 Orders, Labs, Meds: Lab Review 12/07/18 12/07/18 12/07/18 19:00 19:00 19:00 WBC 12.24 H RBC 4.76 Hgb 13.6 Hct 42.1 MCV 88.4 MCH 28.6 MCHC 32.3 RDW Coeff of Juan J 13.9 Plt Count 440 Immature Gran % (Auto) 0.2 Neut % (Auto) 45.8 Lymph % (Auto) 45.9 Shannon % (Auto) 6.8 Eos % (Auto) 0.7 Baso % (Auto) 0.6 Immature Gran # (Auto) 0.0 Neut # (Auto) 5.6 Lymph # (Auto) 5.6 H Shannon # (Auto) 0.8 Eos # (Auto) 0.1 Baso # (Auto) 0.1 Sodium 140.3 Potassium 3.68 Chloride 107.1 H Carbon Dioxide 21.6 L Anion Gap 15.28 BUN 8.6 Creatinine 0.90 Estimated GFR (MDRD) 70.00 BUN/Creatinine Ratio 9.55 Glucose 112.2 H Lactic Acid 1.14 Calcium 9.12 Total Bilirubin 0.44 AST 19.2 ALT 21.7 Alkaline Phosphatase 95.5 Total Creatine Kinase Troponin I Total Protein 8.09 Albumin 4.36 Globulin 3.73 Albumin/Globulin Ratio 1.16 Amylase 98.3 Lipase 150.9 Procalcitonin Urine Color Urine Clarity Urine pH Ur Specific [place] Urine Protein Urine Glucose (UA) Urine Ketones Urine Blood Urine Nitrite Urine Bilirubin Urine Urobilinogen Ur Leukocyte Esterase Urine Microscopic RBC Urine Microscopic WBC Ur Squamous Epith Cells Urine Bacteria Urine Mucus 12/07/18 12/07/18 12/07/18 19:00 19:00 19:43 WBC RBC Hgb Hct MCV MCH MCHC RDW Coeff of Juan J Plt Count Immature Gran % (Auto) Neut % (Auto) Lymph % (Auto) Shannon % (Auto) Eos % (Auto) Baso % (Auto) Immature Gran # (Auto) Neut # (Auto) Lymph # (Auto) Shannon # (Auto) Eos # (Auto) Baso # (Auto) Sodium Potassium Chloride Carbon Dioxide Anion Gap BUN Creatinine Estimated GFR (MDRD) BUN/Creatinine Ratio Glucose Lactic Acid Calcium Total Bilirubin AST ALT Alkaline Phosphatase Total Creatine Kinase 42.8 Troponin I < 0.012 Total Protein Albumin Globulin Albumin/Globulin Ratio Amylase Lipase Procalcitonin < 0.05 Urine Color Yellow Urine Clarity Turbid Urine pH 6.0 Ur Specific [place] >=1.030 Urine Protein 2+ Urine Glucose (UA) Negative Urine Ketones Negative Urine Blood 3+ Urine Nitrite Negative Urine Bilirubin Negative Urine Urobilinogen 0.2 Ur Leukocyte Esterase 2+ Urine Microscopic RBC Tntc Urine Microscopic WBC Tntc Ur Squamous Epith Cells 20-30 Urine Bacteria 1+ Urine Mucus 2+ Orders Category Date Time Status EKG-(ED ONLY) Stat CARDIO 12/07/18 18:40 Completed IV [ED IV/MEDIPORT/POWERPORT] .ONCE EMERGENCY 12/07/18 18:41 Active AMYLASE Stat LAB 12/07/18 19:00 Completed BLOOD CULTURE (ED ONLY) Stat LAB 12/07/18 19:00 Received CBC W/ AUTO DIFF Stat LAB 12/07/18 19:00 Completed COMPREHENSIVE METABOLIC PANEL Stat LAB 12/07/18 19:00 Completed CREATINE KINASE Stat LAB 12/07/18 19:00 Completed LACTIC ACID Stat LAB 12/07/18 19:00 Completed LIPASE Stat LAB 12/07/18 19:00 Completed MOLECULAR GROUP A STREP Stat LAB 12/07/18 19:07 Completed PROCALCITONIN Stat LAB 12/07/18 19:00 Completed TROPONIN I Stat LAB 12/07/18 19:00 Completed URINALYSIS C & S IF INDICATED Stat LAB 12/07/18 19:43 Completed URINE CULTURE Stat LAB 12/07/18 19:43 Received 0.9 % Sodium Chloride [Saline Flush] MEDS 12/07/18 18:41 Ordered 1 syr IVF PRN PRN Ceftriaxone Sodium [Rocephin] MEDS 12/07/18 20:16 Discontinued 1 gm .ROUTE .STK-MED ONE Ceftriaxone Sodium [Rocephin] 1 gm MEDS 12/07/18 20:13 Active 0.9 % Sodium Chloride [Sodium Chloride] 50 ml IV ONCE Ondansetron HCl/Pf [Zofran 4 mg/2 ml] MEDS 12/07/18 18:42 Discontinued 4 mg IVP ONCE STA Sodium Chloride 0.9% [Sodium Chloride] 1,000 ml MEDS 12/07/18 18:[address] ABDOMEN/PELVIS WO CONTRAST Stat RADS 12/07/18 18:41 Completed Medications Generic Name Dose Route Start Last Admin Trade Name Freq PRN Reason Stop Dose Admin Ceftriaxone Sodium 1 gm/ 50 mls @ 75 mls/hr 12/07/18 20:13 12/07/18 20:23 Sodium Chloride IV 12/07/18 20:52 75 mls/hr ONCE STA Administration Sodium Chloride 1 syr 12/07/18 18:41 12/07/18 19:00 Saline Flush IVF 1 syr PRN PRN Administration To flush IV Discontinued Medications Generic Name Dose Route Start Last Admin Trade Name Freq PRN Reason Stop Dose Admin Sodium Chloride 1,000 mls @ 1,000 mls/hr 12/07/18 18:42 12/07/18 19:00 Sodium Chloride IV 12/07/18 19:41 1,000 mls/hr BOLUS STA Administration Ondansetron HCl 4 mg 12/07/18 18:42 12/07/18 19:01 Zofran 4 Mg/2 Ml IVP 12/07/18 18:43 4 mg ONCE STA Administration Vital Signs: Temp Pulse Resp BP Pulse Ox 12/07/18 18:32 98.4 F 77 20 137/85 96 Departure - Departure Time of Disposition: 20:35 Disposition: ADMITTED INPATIENT Discharge Problem: Pyelonephritis Instructions: Kidney Infection (ED) Condition: Good Pt referred to PMD for follow-up: Yes IPMP verified?: No Allergies/Adverse Reactions: Allergies sulfamethoxazole [From Bactrim] Allergy (Severe, Verified 12/07/18 18:37) Hives trimethoprim [From Bactrim] Allergy (Severe, Verified 12/07/18 18:37) Hives ciprofloxacin [From Cipro] Adverse Reaction (Verified 12/07/18 18:37) ciprofloxacin HCl [From Cipro] Adverse Reaction (Verified 12/07/18 18:37) codeine [Codeine] Adverse Reaction (Verified 12/07/18 18:37) BREAK OUT, THROAT SWELLING ibuprofen Adverse Reaction (Verified 12/07/18 18:37) morphine Adverse Reaction (Verified 12/07/18 18:37) tramadol HCl [From Ultram] Adverse Reaction (Verified 12/07/18 18:37) ITCHY Home Medications: Ambulatory Orders Hydrocodone/Acetaminophen [[place] 7.5-325 Tablet] 1 each PO TID 07/20/18 Oxybutynin Chloride 5 mg PO BID 07/20/18 Atomoxetine HCl [Strattera] 40 mg PO DAILY 11/07/18 Propranolol HCl [Propranolol HCl ER] 60 mg PO DAILY 11/07/18 Quetiapine Fumarate 50 mg PO BID 11/25/18 Sertraline HCl 50 mg PO DAILY 11/25/18 Topiramate 25 mg PO DAILY 11/25/18 Amoxicillin/Potassium Clav [Augmentin 875-125 mg Tab] 1 tab PO Q12HR #20 tablet 12/04/18 Disposition Discussed With: Patient, Family
[2018-12-07] MEDS ORDERED: TYLENOL PO PRN (20:37)
[2018-12-07] MEDS ORDERED: ZOFRAN 4 MG/2 ML IVP PRN (20:39)
[2018-12-07] MEDS ORDERED: NORCO 7.5-325 PO PRN (20:40)
[2018-12-07] MEDS ORDERED: ROCEPHIN 1 GM in SODIUM CHLORIDE 50 ML IV SCH (21:00)
[2018-12-07] MEDS ORDERED: QUETIAPINE FUMARATE 50 MG PO SCH (21:00)
[2018-12-07 21:34] VITALS: BMI 44.8
[2018-12-07] MEDS: SEROQUEL ONE ×3 (21:43→21:47)
[2018-12-07] MEDS: SODIUM CHLORIDE 0.9%-KCL 20 MEQ 1,000 ML IV SCH (21:43)
[2018-12-07] MEDS: DITROPAN PO SCH (21:43)
[2018-12-08] MEDS ORDERED: SEROQUEL PO SCH (09:00)
[2018-12-08] MEDS ORDERED: TOPIRAMATE 25 MG PO SCH (09:00)
[2018-12-08] MEDS: TOPAMAX PO SCH (09:48)
[2018-12-08] MEDS: ZOLOFT PO SCH (09:49)
[2018-12-08] MEDS: DITROPAN PO SCH ×2 (09:49→20:58)
[2018-12-08] MEDS: SEROQUEL PO SCH ×2 (09:49→20:58)
[2018-12-08] MEDS: PROPRANOLOL HCL 60 MG PO SCH (10:59)
[2018-12-08] MEDS: SODIUM CHLORIDE 0.9%-KCL 20 MEQ 1,000 ML IV SCH (11:49)
[2018-12-08] MEDS ORDERED: ROCEPHIN 1 GM in SODIUM CHLORIDE 50 ML IV SCH (21:00)
[2018-12-09] MEDS: SODIUM CHLORIDE 0.9%-KCL 20 MEQ 1,000 ML IV SCH (03:07)
[2018-12-09] MEDS: DITROPAN PO SCH (09:15)
[2018-12-09] MEDS: PROPRANOLOL HCL 60 MG PO SCH (09:15)
[2018-12-09] MEDS: TOPAMAX PO SCH (09:16)
[2018-12-09] MEDS: SEROQUEL PO SCH (09:16)
[2018-12-09] MEDS: ZOLOFT PO SCH (09:17)
[2018-12-09 14:16] VITALS: BP 120/83; TEMP 97.8
--- NOTE | 2018-12-28 11:24 | SSS ---
DATE OF SERVICE: 12/09/18 CHIEF COMPLAINT: "I keep throwing up and still have my urinary tract infection." DISCUSSION: This is a 29-year-old lady who was recently seen for a UTI. She was discharged with antibiotics. She presented back on the day of admission with continued urinary symptoms with dysuria, frequency and vomiting. She was seen in the Emergency Department. CT scan did not reveal any evidence of obstruction. Urinalysis did reveal evidence of pyelonephritis and the patient was admitted to my services as hospitalist for treatment of the infection as well as IV hydration. PAST MEDICAL HISTORY: MEDICATIONS: [place] Oxybutynin Strattera Propranolol Seroquel Zoloft Topamax Augmentin ALLERGIES: SULFA, BACTRIM, CIPRO, CODEINE, IBUPROFEN, MORPHINE, TRAMADOL PAST MEDICAL HISTORY: Significant for history of migraine headaches Anxiety Depression Bipolar disorder Chronic back pain PAST SURGICAL HISTORY: History of tubal ligation History of cholecystectomy FAMILY HISTORY: Reviewed. Denies any familial tendencies. SOCIAL HISTORY: No history of tobacco, alcohol or illicit drug use is noted. REVIEW OF SYSTEMS: She is noted to have fever and chills. She has had dysuria as well as hematuria. Dneies any chest pain, shortness of breath, hemoptysis, blood in the stool, or seizures. PHYSICAL EXAMINATION: VITAL SIGNS: Temperature 98.4, pulse 77, respirations 20 and blood pressure 136/ 85. HEENT: Pupils are round. NECK: Supple. CHEST: Clear. CARDIOVASCULAR: Regular rate and rhythm. ABDOMEN: Soft, nontender. Bowel sounds present. EXTREMITIES: Distal extremities without cyanosis or edema. CLINICAL COURSE: Her urine culture was negative. Her vomiting resolved. Her diet was advanced. At time of discharge, she was feeling much better, had no further nausea or vomiting. She was afebrile. At this point we felt the patient could be discharged to home. She was discharged with Omnicef. She will followup with her regular doctor in two weeks to have urine rechecked and recultured. Because I discussed with her the abnormalities on CT scan, she may end up needing to see a urologist as an outpatient. She was agreeable to doing this. ASSESSMENT: 1. PYELONEPHRITIS. PLAN: 1. IV fluids. 2. Antiemetics. 3. Antibiotics pending results of cultures. 4. Please see orders. MTDD
== END 2018-12-09 17:25 | disposition home or self-care (01) ==
LOC: ED 18:31 → OBSVTOIN 20:49 → MEDSURG A 20:49 → INTOOBSV 20:49
PROVIDERS: ADMIT Family Medicine; ATTEND Family Medicine
DX: N12 Tubulo-interstitial nephritis, not specified as acute or chronic (principal); R30.9 Painful micturition, unspecified; R31.9 Hematuria, unspecified; R50.9 Fever, unspecified; R30.0 Dysuria; E86.0 Dehydration
CPT/HCPCS: 36415; 80053; 81001; 82150; 82550; 83605; 83690; 84145; 84484; 85025; 87040; 87086; 87651; 93005; 93010; 96360; 96361; 96365; 96366; 96372; 96375; 97802; 99285